=== PATIENT | female | born 1985 | race Caucasian/White ===

== ENCOUNTER 2021-07-01 09:41 | Outpatient (REF) | payer OTHER, SELFPAY | END 2021-07-01 09:42 | disposition home or self-care (01) | LOC: HO.SCI 09:41 | PROVIDERS: Visit Provider Psychiatry & Neurology Neurology | DX: Z13.89 Encounter for screening for other disorder (principal) ==

== ENCOUNTER 2021-07-09 11:17 | Outpatient (REF) | payer OTHER, SELFPAY ==
--- NOTE | ~2021-07-09 | MR_ITS ---
EXAMINATION: MR BRAIN WITHOUT AND WITH CONTRAST CLINICAL INFORMATION: Chronic daily headaches. COMPARISON: None. TECHNIQUE: Multiplanar, multisequence imaging of the brain was performed before and after the intravenous administration of 9 mL of Gadavist. FINDINGS: No diffusion abnormalities are identified to suggest an acute infarct. The ventricles are normal in size. No mass effect or midline shift is seen. No brain parenchymal signal abnormality is noted. No extra-axial fluid collections are seen. The brainstem and cerebellum are normal. There is no abnormal parenchymal or leptomeningeal enhancement. The gradient refocused acquisition is normal. The craniovertebral junction, marrow signal, and midline structures are normal. The major intracranial flow voids at the level of the [place] are preserved. The dural venous sinus flow voids are maintained. There is mild to moderate ethmoid sinus mucosal thickening and scattered small retention cysts with mild mucosal thickening along the davis of the right maxillary antrum. There is trace fluid in the dependent left mastoid air cells. The right mastoid air cells are aerated. MR/MR head/brain wo/w con IMPRESSION: Normal MRI of the brain. No acute process.
== END 2021-07-09 11:18 | disposition home or self-care (01) ==
LOC: HO.MRI 11:17
PROVIDERS: PCP Nurse Practitioner Family; Visit Provider Psychiatry & Neurology Neurology
DX: R51.9 Headache, unspecified (principal); N91.2 Amenorrhea, unspecified
CPT/HCPCS: 70553; A9585